=== PATIENT | female | born 1935 | race Caucasian/White ===

== ENCOUNTER 2016-05-18 12:46 | Emergency (ER) | payer MEDICARE, MEDICAID ==
--- NOTE | 2016-05-18 14:32 | CT ---
C-SPINE W/O CON COMPARISON: None. HISTORY: The patient fell, with neck and back pain. Technique: Using a [employer] Aqu[employer] [address] scanner, images obtained through the cervical spine. An automated dose reduction technique was used to minimize patient radiation dose. Dose information: CTDIvol (mGy) 10.40 DLP(mGycm): 192.20 FINDINGS: Vertebral alignment: Dextroscoliosis of the cervical spine. No excessive angulation or translation. C1-2 alignment: Normal. Craniocervical junction: Normal. Vertebral bodies: Moderate compression fractures of C7 and T2, mild at T1, all which appear chronic. Generalized osteopenia. Intervertebral discs: Normal. Spinal canal: Normal. Facet joints and posterior arches: Moderate facet osteoarthritis on the right at C2-3, C3-4, and C5-6, and on the left at C3-4, C4-5, C5-6, and C6-7. Prevertebral soft tissues: Normal Lung apices and superior mediastinum: Normal. Airway: Normal. C1-2: Osteoarthritis at the atlantodental interval. IMPRESSION: 1. No fracture or dislocation. 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 2. Multilevel moderate facet osteoarthritis, right C2-3, C3-4, C5-6, left C3-4, C4-5, C5-6, and C6-7. 3. Moderate dextroscoliosis of the cervical spine. Report was sent to the emergency department [facility] medical record system 05/18/2016 at 14:34
--- NOTE | 2016-05-18 14:36 | CT ---
ADDENDUM #1 TECHNIQUE: Unenhanced CT of the thoracic spine was performed. ORIGINAL REPORT T-SPINE W/O CON COMPARISON: None HISTORY: The patient fell and has neck and back pain. TECHNIQUE: [employer]orian 1.5T MRI system. Multiplanar multisequence MRI of the thoracic spine was performed. FINDINGS: Alignment: Mild dextroscoliosis of the upper thoracic spine. Vertebral bodies: No acute fracture. Osteoporosis with old compression fractures of all the thoracic vertebral bodies. Discs: Normal. Pedicles: Normal. Facet joints and posterior arches: Normal. Paraspinal soft tissues and muscles: Normal. Spinal canal: Normal. Foramina: Normal. IMPRESSION: 1. No acute finding. Osteoporosis with old compression fractures of all of the thoracic vertebral bodies. Report was sent to the emergency department [facility] medical record system 05/18/2016 at 14:38
--- NOTE | 2016-05-18 14:37 | RAD ---
SHOULDER-LEFT 2 OR MORE VIEWS COMPARISON: None HISTORY: Fall. Left shoulder pain. FINDINGS: Views: Left shoulder AP and scapula Y Bones: No acute finding. Healed humerus fracture with hardware fixation. Joints: Mild osteoarthritis of the glenohumeral joint. Soft tissues: Normal IMPRESSION: No acute finding. Healed fracture of the left humeral diaphysis with satisfactory appearance of the internal fixation hardware.
[2016-05-18] MEDS ORDERED: ACETAMINOPHEN 500 MG TABLET ONE (14:54)
== END 2016-05-18 16:41 | disposition home or self-care (01) ==
LOC: ED 12:46
DX: M54.9 Dorsalgia, unspecified (principal); M47.812 Spondylosis without myelopathy or radiculopathy, cervical region; M79.602 Pain in left arm; G30.9 Alzheimer's disease, unspecified; F02.80 Dementia in other diseases classified elsewhere, unspecified severity, without behavioral disturbance, psychotic disturbance, mood disturbance, and anxiety; W18.30XA Fall on same level, unspecified, initial encounter; Y93.01 Activity, walking, marching and hiking; Y92.199 Unspecified place in other specified residential institution as the place of occurrence of the external cause
CPT/HCPCS: 73030; 72125; 72128; 99284; 99283; A9270